=== PATIENT | female | born 1950 | race Caucasian/White ===

== ENCOUNTER → 2017-11-08 | Outpatient (CLI) | payer MEDICARE, OTHER ==
[~2017-11-08] MED LIST: ADAL40PEN; ALBU90OI INH; ALEN70 PO; ASPI325; ASPI325EC; ASPI81CH PO; ATEN25 PO; ATOR40TA; Ativan1 MG PO; BUPR150ER PO; CALCA500CH PO; CILO50; CITA20 PO; CLON.1 PO; CLOP75 PO; CONEST.625; Crestor20 MG PO; DOCU100 PO; DULO60; Desyrel150 MG PO; ESOM20 PO; FERR325 PO; FLONASE ALLERG9.9 ML; FLUT.05NI; FOLI1 PO; FURO40 PO; GABA100 PO; GLIM2 PO; HUMALOG MI SQ; HYDCHL25; INSULANPEN; INSULANPEN SC; LISI20 PO; LISI5; METF500C; METHOTREXATE PO; METTREX2.5 PO; NEFA100; Nexium40 MG PO; Novolin R100 UNIT/M; OMEP20ER; PRAZ1 PO; PRED5 PO; PROLIA60 MG/1 ML SQ; Percocet 5-3251 EACH PO; ROSU10TA PO; TOPI25C; Toprol Xl50 MG PO; VALS80; Zestril40 MG
[2017-11-15 21:07] LABS: CREATININE, URINE 51.9 mg/dL (Not Estab.)
[2017-11-16 13:45] LABS: METANEPHRINE, UR 29 ug/L (Undefined); NORMETANEPHRINE, UR 106 ug/L (Undefined)
== END ==
LOC: OLS 07:00 → LAB SHORT 07:00 → LAB FUT 11-01 17:40
PROVIDERS: Internal Medicine Nephrology
DX: N18.3 Chronic kidney disease, stage 3 (moderate) (principal); D63.1 Anemia in chronic kidney disease
CPT/HCPCS: 81050; 82570; 83835; 84585

== ENCOUNTER → 2018-09-06 | Outpatient (CLI) | payer MEDICARE, OTHER ==
[2018-09-06 17:07] LABS: Influenza A Negative (NEGATIVE); Influenza B Negative (NEGATIVE)
== END | disposition home or self-care (01) ==
LOC: LAB 15:53 → LAB SHORT 15:53
PROVIDERS: Nurse Practitioner Family
DX: R05 Cough (principal); R53.83 Other fatigue
CPT/HCPCS: 87804

== ENCOUNTER → 2019-06-24 | Outpatient (CLI) | payer MEDICARE, OTHER ==
[2019-06-24 14:48] LABS: BASOPHILS ABSOLUTE AUTO 0.02 K/mm3 (0.00-0.23); BASOPHILS PERCENT AUTO 0 % (0-2); EOSINOPHILS ABSOLUTE AUTO 0.05 K/mm3 (0.00-0.68); EOSINOPHILS PERCENT AUTO 1 % (0-6); Hematocrit 34.2 % (33.0-51.0); Hemoglobin 11.2 g/dL (11.5-16.0); IMMATURE GRAN ABSOLUTE AUTO 0.04 K/mm3 (0.00-0.10); IMMATURE GRAN PERCENT AUTO 1 % (0-1); LYMPHOCYTES ABSOLUTE AUTO 0.98 K/mm3 (0.84-5.20); LYMPHOCYTES PERCENT AUTO 13 % (21-46); MONOCYTES ABSOLUTE AUTO 0.49 K/mm3 (0.16-1.47); MONOCYTES PERCENT AUTO 7 % (4-13); Mean Corpuscular HGB 30.2 pg (26.0-34.0); Mean Corpuscular HGB Conc 32.7 g/dL (31.5-36.5); Mean Corpuscular Volume 92 fL (80-100); Mean Platelet Volume 10.8 fL (9.1-12.4); NEUTROPHILS ABSOLUTE AUTO 5.92 K/mm3 (1.96-9.15); NEUTROPHILS PERCENT AUTO 79 % (41-73); Platelet Count 218 K/mm3 (150-400); RDW Coefficient Variation 13.9 % (11.7-14.2); Red Blood Cell Count 3.71 M/mm3 (3.80-5.20)
[2019-06-24 15:00] LABS: Albumin, Blood 2.8 g/dL (3.4-5.0); Albumin/Globulin Ratio 0.7 (0.8-1.8); Bilirubin, Total 0.4 mg/dL (0.1-1.0); Bun/Creatinine Ratio 8.9 (12.0-20.0); Calcium, Blood 8.5 mg/dL (8.5-10.1); Creatinine, Blood 1.57 mg/dL (0.40-1.00); Globulin, Blood 4.3 g/dL (2.2-4.0); Potassium, Blood 3.6 mmol/L (3.5-5.5); Total Protein, Blood 7.1 g/dL (6.4-8.2); Uric Acid, Blood 6.7 mg/dL (2.6-6.0)
[2019-06-25 07:33] LABS: BASOPHILS ABSOLUTE AUTO 0.02 K/mm3 (0.00-0.23); BASOPHILS PERCENT AUTO 0 % (0-2); EOSINOPHILS ABSOLUTE AUTO 0.04 K/mm3 (0.00-0.68); EOSINOPHILS PERCENT AUTO 1 % (0-6); Hematocrit 35.1 % (33.0-51.0); Hemoglobin 11.1 g/dL (11.5-16.0); IMMATURE GRAN ABSOLUTE AUTO 0.04 K/mm3 (0.00-0.10); IMMATURE GRAN PERCENT AUTO 1 % (0-1); LYMPHOCYTES ABSOLUTE AUTO 1.03 K/mm3 (0.84-5.20); LYMPHOCYTES PERCENT AUTO 13 % (21-46); MONOCYTES ABSOLUTE AUTO 0.51 K/mm3 (0.16-1.47); MONOCYTES PERCENT AUTO 7 % (4-13); Mean Corpuscular HGB 29.9 pg (26.0-34.0); Mean Corpuscular HGB Conc 31.6 g/dL (31.5-36.5); Mean Corpuscular Volume 95 fL (80-100); Mean Platelet Volume 11.9 fL (9.1-12.4); NEUTROPHILS ABSOLUTE AUTO 6.04 K/mm3 (1.96-9.15); NEUTROPHILS PERCENT AUTO 79 % (41-73); Platelet Count 220 K/mm3 (150-400); RDW Coefficient Variation 14.1 % (11.7-14.2); RDW Standard Deviation 48.9 fL (35.1-46.3); Red Blood Cell Count 3.71 M/mm3 (3.80-5.20); White Blood Cell Count 7.68 K/mm3 (4.00-11.30)
[2019-06-25 09:27] LABS: Alanine Aminotransfer (ALT/SGP 29 U/L (12-78); Albumin, Blood 2.8 g/dL (3.4-5.0); Albumin/Globulin Ratio 0.7 (0.8-1.8); Alk Phos 129 U/L (40-126); Anion Gap 10 mmol/L (6-16); Aspartate Aminotrans (AST/SGOT 50 U/L (12-37); Bilirubin, Direct 0.1 mg/dL (0.0-0.3); Bilirubin, Indirect 0.2 mg/dL (0.1-0.7); Bilirubin, Total 0.3 mg/dL (0.1-1.0); Blood Urea Nitrogen 15 mg/dL (8-24); Bun/Creatinine Ratio 9.4 (12.0-20.0); CHOL/HDL RATIO 2.9; CO2, Blood 27 mmol/L (21-32); Calcium, Blood 8.6 mg/dL (8.5-10.1); Chloride, Blood 95 mmol/L (98-108); Cholesterol 107 mg/dL (50-200); Creatinine, Blood 1.59 mg/dL (0.40-1.00); Globulin, Blood 4.3 g/dL (2.2-4.0); Glomerular Filtration Rate 32 (60-); Glucose, Blood 385 mg/dL (70-99); HDL Cholesterol 37 mg/dL (>39); LDL/HDL RATIO 0.5; Low Density Lipoprotein Chol 18 mg/dL (<110); Phosphorus, Blood 3.2 mg/dL (2.5-4.9); Potassium, Blood 4.2 mmol/L (3.5-5.5); Sodium, Blood 132 mmol/L (136-145); Total Protein, Blood 7.1 g/dL (6.4-8.2); Triglycerides 262 mg/dL (30-160); Very Low Density Lipoprot Chol 52 mg/dL (6-32)
== END | disposition home or self-care (01) ==
LOC: LAB SHORT 14:44 → LAB EV 14:44
PROVIDERS: Internal Medicine Nephrology; Physician Assistant
DX: M10.9 Gout, unspecified (principal); N18.3 Chronic kidney disease, stage 3 (moderate); D75.1 Secondary polycythemia; E78.00 Pure hypercholesterolemia, unspecified; N25.81 Secondary hyperparathyroidism of renal origin; E55.9 Vitamin D deficiency, unspecified; R76.9 Abnormal immunological finding in serum, unspecified; R94.6 Abnormal results of thyroid function studies; R94.5 Abnormal results of liver function studies
CPT/HCPCS: 36415; 80053; 80061; 82248; 84100; 84550; 85025

== ENCOUNTER 2020-08-15 22:19 | Emergency (ER) | payer MEDICARE, OTHER ==
[~2020-08-15] VITALS: Ht 154.9 cm; Wt 97.1 kg
[2020-08-15 22:56] LABS: BASOPHILS ABSOLUTE AUTO 0.03 K/mm3 (0.00-0.23); BASOPHILS PERCENT AUTO 0 % (0-2); EOSINOPHILS ABSOLUTE AUTO 0.18 K/mm3 (0.00-0.68); EOSINOPHILS PERCENT AUTO 2 % (0-6); Hematocrit 34.4 % (33.0-51.0); Hemoglobin 11.2 g/dL (11.5-16.0); IMMATURE GRAN PERCENT AUTO 1 % (0-1); LYMPHOCYTES ABSOLUTE AUTO 2.47 K/mm3 (0.84-5.20); LYMPHOCYTES PERCENT AUTO 31 % (21-46); MONOCYTES ABSOLUTE AUTO 0.41 K/mm3 (0.16-1.47); MONOCYTES PERCENT AUTO 5 % (4-13); Mean Corpuscular HGB 30.4 pg (26.0-34.0); Mean Corpuscular HGB Conc 32.6 g/dL (31.5-36.5); Mean Corpuscular Volume 93 fL (80-100); NEUTROPHILS ABSOLUTE AUTO 4.84 K/mm3 (1.96-9.15); NEUTROPHILS PERCENT AUTO 60 % (41-73); Platelet Count 217 K/mm3 (150-400); RDW Coefficient Variation 14.1 % (11.7-14.2); RDW Standard Deviation 47.1 fL (35.1-46.3); Red Blood Cell Count 3.69 M/mm3 (3.80-5.20); White Blood Cell Count 8.03 K/mm3 (4.00-11.30)
[2020-08-15 23:17] LABS: Albumin, Blood 3.2 g/dL (3.4-5.0); Albumin/Globulin Ratio 0.8 (0.8-1.8); Bilirubin, Total 0.5 mg/dL (0.1-1.0); Bun/Creatinine Ratio 9.2 (12.0-20.0); Calcium, Blood 9.3 mg/dL (8.5-10.1); Creatinine, Blood 1.2 mg/dL (0.40-1.00); Globulin, Blood 3.8 g/dL (2.2-4.0)
[2020-08-16] MEDS ORDERED: GABA100 PO (00:51)
[2020-08-16] MEDS ORDERED: DESV50 PO (00:52)
[2020-08-16] MEDS ORDERED: ALLO100 PO (00:52)
[2020-08-16] MEDS ORDERED: FOLI1 PO (00:53)
[2020-08-16] MEDS ORDERED: CLON.5 PO (00:56)
[2020-08-16] MEDS ORDERED: METF500C PO (00:56)
== END 2020-08-16 01:56 | disposition home or self-care (01) ==
LOC: ER 22:19
PROVIDERS: Emergency Medicine
DX: T38.3X1A Poisoning by insulin and oral hypoglycemic [antidiabetic] drugs, accidental (unintentional), initial encounter (principal); E11.9 Type 2 diabetes mellitus without complications; E78.5 Hyperlipidemia, unspecified; I10 Essential (primary) hypertension; Z88.0 Allergy status to penicillin; Z79.899 Other long term (current) drug therapy; Z79.4 Long term (current) use of insulin; Z79.02 Long term (current) use of antithrombotics/antiplatelets; Z87.891 Personal history of nicotine dependence; Z95.5 Presence of coronary angioplasty implant and graft
CPT/HCPCS: 36415; 80053; 82947; 85025; 99283

== ENCOUNTER 2021-10-25 23:16 | Inpatient (IN) | payer MEDICARE, OTHER ==
[~2021-10-25] VITALS: Ht 154.9 cm; Wt 100.1 kg
[~2021-10-25 23:16] MED LIST changes: +ALLO100 PO; +CLON.5 PO; +DESV50 PO; +FLONASE ALLERG9.9 M2; -FLONASE ALLERG9.9 ML; -HUMALOG MI SQ; +HUMALOG MI100 UNIT/3 SC; +HUMIRA PEN40 MG/0.2 INJ; -INSULANPEN; +METF500C PO; +PROLIA60 MG/1 ML; -PROLIA60 MG/1 ML SQ; +Prinivil10 MG PO
[2021-10-26 00:07] LABS: BASOPHILS ABSOLUTE AUTO 0.04 K/mm3 (0.00-0.23); BASOPHILS PERCENT AUTO 0 % (0-2); EOSINOPHILS ABSOLUTE AUTO 0.01 K/mm3 (0.00-0.68); EOSINOPHILS PERCENT AUTO 0 % (0-6); Hematocrit 38.7 % (33.0-51.0); Hemoglobin 12.7 g/dL (11.5-16.0); IMMATURE GRAN ABSOLUTE AUTO 0.19 K/mm3 (0.00-0.10); IMMATURE GRAN PERCENT AUTO 2 % (0-1); LYMPHOCYTES PERCENT AUTO 5 % (21-46); MONOCYTES PERCENT AUTO 3 % (4-13); Mean Corpuscular HGB 30.4 pg (26.0-34.0); Mean Corpuscular HGB Conc 32.8 g/dL (31.5-36.5); Mean Corpuscular Volume 93 fL (80-100); Mean Platelet Volume 11.1 fL (9.1-12.4); NEUTROPHILS ABSOLUTE AUTO 11.65 K/mm3 (1.96-9.15); NEUTROPHILS PERCENT AUTO 90 % (41-73); Platelet Count 166 K/mm3 (150-400); RDW Coefficient Variation 14.3 % (11.7-14.2); RDW Standard Deviation 47.9 fL (35.1-46.3); Red Blood Cell Count 4.18 M/mm3 (3.80-5.20); White Blood Cell Count 12.89 K/mm3 (4.00-11.30)
[2021-10-26 00:18] LABS: Albumin, Blood 3.3 g/dL (3.4-5.0); Albumin/Globulin Ratio 0.9 (0.8-1.8); Bilirubin, Total 0.6 mg/dL (0.1-1.0); Bun/Creatinine Ratio 13.2 (12.0-20.0); Calcium, Blood 8.8 mg/dL (8.5-10.1); Creatinine, Blood 1.29 mg/dL (0.40-1.00); Globulin, Blood 3.8 g/dL (2.2-4.0); Potassium, Blood 3.9 mmol/L (3.5-5.5); Total Protein, Blood 7.1 g/dL (6.4-8.2)
[2021-10-26 01:35] LABS: Influenza A Negative (NEGATIVE); Influenza B Negative (NEGATIVE)
[2021-10-26 02:02] LABS: SARS-Cov-2 (COVID-19) PCR, MMC NEGATIVE (NEGATIVE)
[2021-10-26 03:20] LABS: BASOPHILS ABSOLUTE AUTO 0.05 K/mm3 (0.00-0.23); BASOPHILS PERCENT AUTO 0 % (0-2); EOSINOPHILS PERCENT AUTO 1 % (0-6); Hematocrit 33.3 % (33.0-51.0); Hemoglobin 10.7 g/dL (11.5-16.0); IMMATURE GRAN ABSOLUTE AUTO 0.29 K/mm3 (0.00-0.10); IMMATURE GRAN PERCENT AUTO 2 % (0-1); LYMPHOCYTES ABSOLUTE AUTO 1.18 K/mm3 (0.84-5.20); LYMPHOCYTES PERCENT AUTO 7 % (21-46); MONOCYTES PERCENT AUTO 7 % (4-13); Mean Corpuscular HGB 30.2 pg (26.0-34.0); Mean Corpuscular HGB Conc 32.1 g/dL (31.5-36.5); Mean Corpuscular Volume 94 fL (80-100); NEUTROPHILS ABSOLUTE AUTO 14.16 K/mm3 (1.96-9.15); NEUTROPHILS PERCENT AUTO 83 % (41-73); Platelet Count 155 K/mm3 (150-400); RDW Coefficient Variation 14.3 % (11.7-14.2); RDW Standard Deviation 48.2 fL (35.1-46.3); Red Blood Cell Count 3.54 M/mm3 (3.80-5.20); White Blood Cell Count 16.98 K/mm3 (4.00-11.30)
[2021-10-26 04:37] LABS: Source, Urine Straight Cath
[2021-10-26 04:39] LABS: Bilirubin, Urine Neg (Neg); Blood, Urine Neg (Neg); Glucose Qualitative, Urine 1+ (Neg); Ketones, Urine Neg (Neg); Leukocyte Esterase, Urine Neg (Neg); Nitrite, Urine Neg (Neg); Protein, Urine 2+ (Neg); Urobilinogen, Urine NORM (Normal)
[2021-10-26 05:07] LABS: Appearance, Urine Clear (Clear); Color, Urine Yellow (P-Yellow)
[2021-10-26 05:09] LABS: Bacteria Rare /hpf; Red Blood Cells, Urine 0-2 /hpf (0-2); Squamous Epithelial Cells Few /hpf (Few); White Blood Cells, Urine 0-2 /hpf (0-5)
[2021-10-26 08:00] LABS: Albumin, Blood 2.9 g/dL (3.4-5.0); Albumin/Globulin Ratio 0.8 (0.8-1.8); Bilirubin, Total 0.8 mg/dL (0.1-1.0); Bun/Creatinine Ratio 12.1 (12.0-20.0); Calcium, Blood 8.3 mg/dL (8.5-10.1); Creatinine, Blood 1.41 mg/dL (0.40-1.00); Globulin, Blood 3.6 g/dL (2.2-4.0); Potassium, Blood 3.8 mmol/L (3.5-5.5); Total Protein, Blood 6.5 g/dL (6.4-8.2)
--- NOTE | 2021-10-26 16:46 | NUR ---
Spiritual Care visit. Pt. is awake and sitting up. Spouse and Pts. sister are present. Pt. verbalized that she was interested in spiritual care, but it was inconvenient in the moment. Pt. verbalized agreement, when I said I would return at a better time.
[2021-10-26] MEDS ORDERED: Aspir 8181 MG PO (17:01)
[2021-10-26] MEDS ORDERED: Vitamin D1000 UNI1 PO (17:02)
[2021-10-26] MEDS ORDERED: CALCIUM 500 MG1 EAC9 PO (17:03)
[2021-10-26] MEDS ORDERED: FERSU300 PO (17:04)
[2021-10-26] MEDS ORDERED: ASCO500 PO ×2 (17:05→17:06)
[2021-10-26] MEDS ORDERED: OTEZLA30 MG PO (17:14)
[2021-10-26] MEDS ORDERED: DESV50 PO (17:19)
[2021-10-26] MEDS ORDERED: CYAN500 PO (17:30)
[2021-10-26] MEDS ORDERED: SUPER B COMPLEX PO (17:31)
--- NOTE | 2021-10-26 18:42 | NUR ---
Spiritual Care Request. Pt. had requested spiritual care. Re-esatblished rapport from our random visit earlier in the afternoon. Pt. is pleasant but unsettled about her IV being impacted by her sleep posture. Pt. speaks of yaima in broad terms. Explore issues of yaima and belief. Pt. displays evidence of understanding. Nursing staff arrives to try to re-estabish a new IV. Pt. verbalized gratitude for the spiritual care visit.
--- NOTE | 2021-10-26 18:54 | NUR ---
Admit Note Received report from PEPE Whittaker in ED. Pt to room at approx 1525. Pt sba transfered to bed from [facility]. Pt oriented to room and call light. Pt educated on fall risk and using call light for assistance. Pt reports not feeling well but does note recall coming into ED. Pt alert, oriented X4; calm and cooperative with care. Anxious at times. Spo2 >90% on room air, Ls t/o r>l, resp rate 20-26, sob with exertion; productive cough thick yellow sputum per pt report, spouse states she had one episode of "blood sputum in the ED". Pt reports pain to right rib/low chest, medicated per orders. Pt denies nausea, dizziness, numb/tingling at this time. Tele sinus tach 100's, bp stable. Bt hypoactive t/o, pt reports continues to pass gas, abd soft, nontender. 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 Other vss. No other acute changes noted. Will continue to monitor unitl report given to oncoming rn.
[2021-10-27 05:49] LABS: Hemoglobin 10.9 g/dL (11.5-16.0); Mean Corpuscular HGB 29.9 pg (26.0-34.0); Mean Corpuscular HGB Conc 32.1 g/dL (31.5-36.5); Mean Corpuscular Volume 93 fL (80-100); Mean Platelet Volume 10.7 fL (9.1-12.4); Platelet Count 159 K/mm3 (150-400); RDW Coefficient Variation 14.9 % (11.7-14.2); RDW Standard Deviation 51.1 fL (35.1-46.3); Red Blood Cell Count 3.64 M/mm3 (3.80-5.20); White Blood Cell Count 18.21 K/mm3 (4.00-11.30)
[2021-10-27 06:15] LABS: Albumin, Blood 2.7 g/dL (3.4-5.0); Anion Gap 5 mmol/L (6-16); Blood Urea Nitrogen 20 mg/dL (8-24); Bun/Creatinine Ratio 15.7 (12.0-20.0); CO2, Blood 24 mmol/L (21-32); Calcium, Blood 7.9 mg/dL (8.5-10.1); Chloride, Blood 110 mmol/L (98-108); Creatinine, Blood 1.27 mg/dL (0.40-1.00); Glomerular Filtration Rate 42 (60-); Glucose, Blood 211 mg/dL (70-99); Phosphorus, Blood 1.9 mg/dL (2.5-4.9); Potassium, Blood 3.7 mmol/L (3.5-5.5); Sodium, Blood 139 mmol/L (136-145)
--- NOTE | 2021-10-27 15:30 | NUR ---
SHIFT SUMMARY PT AWAKE DURING SHIFT REPORT, REQUESTING ASSIST TO BSC TO VOID. IVF'S INFUSING PER EMAR. PT WAS SBA TO BSC WHILE IVF'S INFUSING, PT NOW INDEPENDENT TO BTHRM. PT'S TO RM THIS AM AND THRU OUT THE DAY. SR PER TELE MX. PT EATING AND DRINKING WELL NOW. NO C/O PAIN. DR HENDERSON HERE THIS AM TO SEE PT; NO NEW ORDERS, CONTINUE PLAN OF CARE. PT DENIED FURTHER NEEDS. ABLE TO MAKE NEEDS KNOWN. CALL LT IN REACH.
[2021-10-28 04:48] LABS: Hematocrit 34.9 % (33.0-51.0); Hemoglobin 10.8 g/dL (11.5-16.0); Mean Corpuscular HGB 30.1 pg (26.0-34.0); Mean Corpuscular HGB Conc 30.9 g/dL (31.5-36.5); Mean Corpuscular Volume 97 fL (80-100); Mean Platelet Volume 10.7 fL (9.1-12.4); Platelet Count 143 K/mm3 (150-400); RDW Standard Deviation 53.4 fL (35.1-46.3); Red Blood Cell Count 3.59 M/mm3 (3.80-5.20); White Blood Cell Count 12.56 K/mm3 (4.00-11.30)
[2021-10-28 05:08] LABS: Albumin, Blood 2.6 g/dL (3.4-5.0); Anion Gap 7 mmol/L (6-16); Blood Urea Nitrogen 14 mg/dL (8-24); Bun/Creatinine Ratio 11.2 (12.0-20.0); CO2, Blood 25 mmol/L (21-32); Calcium, Blood 7.9 mg/dL (8.5-10.1); Chloride, Blood 106 mmol/L (98-108); Creatinine, Blood 1.25 mg/dL (0.40-1.00); Glomerular Filtration Rate 46 (60-); Glucose, Blood 194 mg/dL (70-99); Phosphorus, Blood 2.4 mg/dL (2.5-4.9); Potassium, Blood 4.1 mmol/L (3.5-5.5); Sodium, Blood 138 mmol/L (136-145)
--- NOTE | 2021-10-28 05:48 | NUR ---
SHIFT SUMMARY: PATIENT REPORTED NAUSEA AND R SIDE/BACK PAIN AT START OF SHIFT. TRAMADOL AND ZOFRAN WERE GIVEN WITH GOOD EFFECT. PATIENT HAS NO S/S OF RESPIRATORY DISTRESS. MAINTAINS SATS 98-100% ON RA.
[2021-10-28] MEDS ORDERED: GUAI600T33 PO (14:12)
[2021-10-28] MEDS ORDERED: MIRALAX17 GM PO (14:12)
[2021-10-28] MEDS ORDERED: VISBIOME 112.51 EACH PO (14:13)
[2021-10-28] MEDS ORDERED: AMOCLA875 PO (14:14)
[2021-10-28] MEDS ORDERED: AZIT500 PO (14:15)
--- NOTE | 2021-10-28 17:00 | NUR ---
DISCHARGE SUMMARY PT IV AND TELE REMOVED PRIOR TO DISCHARGE. MEDS FAXED IN TO PHARMACY. PAPERWORK REVIEWED WITH AND SIGNED BY PT. PT TAKEN DOWN VIA WHEELCHAIR TO [facility], ALONG WITH PERSONAL BELONGINGS WHERE SHE WAS MET WITH HER RIDE.
== END 2021-10-28 15:51 | disposition home or self-care (01) | DRG 871 ==
LOC: ER 23:16 → ERHOLD 10-26 04:14 → MEDS 10-26 15:19
PROVIDERS: Emergency Medicine; Family Medicine; Internal Medicine; ADMIT Family Medicine
DX: A41.9 Sepsis, unspecified organism (principal); J18.9 Pneumonia, unspecified organism; G92.8 Other toxic encephalopathy; D84.821 Immunodeficiency due to drugs; Z20.822 Contact with and (suspected) exposure to COVID-19; R65.20 Severe sepsis without septic shock; N18.30 Chronic kidney disease, stage 3 unspecified; E11.22 Type 2 diabetes mellitus with diabetic chronic kidney disease; E11.65 Type 2 diabetes mellitus with hyperglycemia; I12.9 Hypertensive chronic kidney disease with stage 1 through stage 4 chronic kidney disease, or unspecified chronic kidney disease; E11.51 Type 2 diabetes mellitus with diabetic peripheral angiopathy without gangrene; I25.10 Atherosclerotic heart disease of native coronary artery without angina pectoris; L40.50 Arthropathic psoriasis, unspecified; M79.7 Fibromyalgia; F42.9 Obsessive-compulsive disorder, unspecified; E78.5 Hyperlipidemia, unspecified; I25.2 Old myocardial infarction; Z79.02 Long term (current) use of antithrombotics/antiplatelets; Z79.84 Long term (current) use of oral hypoglycemic drugs; Z79.899 Other long term (current) drug therapy; Z95.5 Presence of coronary angioplasty implant and graft; Z90.710 Acquired absence of both cervix and uterus; Z87.891 Personal history of nicotine dependence; Z88.0 Allergy status to penicillin
CPT/HCPCS: 36415; 71045; 80053; 80069; 81001; 82947; 83605; 83880; 84145; 85025; 85027; 87040; 87804; 94640; 94664; 94760; 96372; 96374; 96375; 97161; 97530; 99285-25; A9270; J0456; J1650; J1815; J2405; J2543; J7030; J7060; J7120; U0004

== ENCOUNTER 2021-11-01 23:38 | Emergency (ER) | payer MEDICARE, OTHER ==
[~2021-11-01] VITALS: Ht 154.9 cm; Wt 97.1 kg
[~2021-11-01 23:38] MED LIST changes: +AMOCLA875 PO; +ASCO500 PO; +AZIT500 PO; +Aspir 8181 MG PO; +CALCIUM 500 MG1 EAC9 PO; +CYAN500 PO; +FERSU300 PO; +GUAI600T33 PO; +MIRALAX17 GM PO; +OTEZLA30 MG PO; +SUPER B COMPLEX PO; +VISBIOME 112.51 EACH PO; +Vitamin D1000 UNI1 PO
[2021-11-02 00:46] LABS: Hematocrit 41.8 % (33.0-51.0); Mean Corpuscular HGB 29.6 pg (26.0-34.0); Mean Corpuscular HGB Conc 31.1 g/dL (31.5-36.5); Mean Corpuscular Volume 95 fL (80-100); Mean Platelet Volume 10.5 fL (9.1-12.4); NRBC ABSOLUTE 0.03 K/mm3 (0.00-0.02); NRBC Auto 0.3 /100 WBC (0.0-0.2); Platelet Count 295 K/mm3 (150-400); RDW Coefficient Variation 14.4 % (11.7-14.2); RDW Standard Deviation 50.1 fL (35.1-46.3); Red Blood Cell Count 4.39 M/mm3 (3.80-5.20); White Blood Cell Count 10.11 K/mm3 (4.00-11.30)
[2021-11-02 00:58] LABS: Albumin/Globulin Ratio 0.7 (0.8-1.8); Bilirubin, Total 0.4 mg/dL (0.1-1.0); Bun/Creatinine Ratio 16.5 (12.0-20.0); Calcium, Blood 9.4 mg/dL (8.5-10.1); Creatinine, Blood 1.15 mg/dL (0.40-1.00); Globulin, Blood 4.6 g/dL (2.2-4.0); Potassium, Blood 3.9 mmol/L (3.5-5.5); Total Protein, Blood 7.6 g/dL (6.4-8.2)
[2021-11-02 01:15] LABS: BAND PERCENT MAN 4 % (0-8); BASOPHILS PERCENT MAN 3 % (0-2); EOSINOPHILS PERCENT MAN 1 % (0-6); LYMPHOCYTES ABSOLUTE MAN 3.03 K/mm3 (0.84-5.20); LYMPHOCYTES PERCENT MAN 30 % (21-46); METAMYELOCYTE PERCENT MAN 3 % (0-0); MONOCYTES PERCENT MAN 4 % (4-13); MYELOCYTE PERCENT MAN 1 % (0-0); NEUTROPHILS ABSOLUTE MAN 5.86 K/mm3 (1.96-9.15); SEG NEUTROPHILS PERCENT MAN 54 % (41-73); TOTAL CELLS COUNTED 100
== END 2021-11-02 04:47 | disposition home or self-care (01) ==
LOC: ER 23:38
PROVIDERS: Student in an Organized Health Care Education/Training Program
DX: J18.9 Pneumonia, unspecified organism (principal); E78.5 Hyperlipidemia, unspecified; I12.9 Hypertensive chronic kidney disease with stage 1 through stage 4 chronic kidney disease, or unspecified chronic kidney disease; E11.22 Type 2 diabetes mellitus with diabetic chronic kidney disease; N18.9 Chronic kidney disease, unspecified; I25.2 Old myocardial infarction; I25.10 Atherosclerotic heart disease of native coronary artery without angina pectoris; Z79.4 Long term (current) use of insulin; Z95.5 Presence of coronary angioplasty implant and graft; Z87.891 Personal history of nicotine dependence; Z79.899 Other long term (current) drug therapy; Z88.0 Allergy status to penicillin
CPT/HCPCS: 36415; 71046; 71250; 80053; 84484; 85025; 93005; 93010; 99284-25

== ENCOUNTER 2022-02-22 17:32 | Inpatient (IN) | payer MEDICARE, OTHER ==
[~2022-02-22] VITALS: Ht 154.9 cm; Wt 102.1 kg
[~2022-02-22 17:32] MED LIST changes: +GABA300 PO; +INSULANI SC
[2022-02-22 18:16] LABS: BASOPHILS ABSOLUTE AUTO 0.03 K/mm3 (0.00-0.23); BASOPHILS PERCENT AUTO 0 % (0-2); EOSINOPHILS ABSOLUTE AUTO 0.12 K/mm3 (0.00-0.68); EOSINOPHILS PERCENT AUTO 1 % (0-6); Hematocrit 40.4 % (33.0-51.0); Hemoglobin 13.3 g/dL (11.5-16.0); IMMATURE GRAN ABSOLUTE AUTO 0.07 K/mm3 (0.00-0.10); IMMATURE GRAN PERCENT AUTO 1 % (0-1); LYMPHOCYTES ABSOLUTE AUTO 2.33 K/mm3 (0.84-5.20); LYMPHOCYTES PERCENT AUTO 23 % (21-46); MONOCYTES PERCENT AUTO 6 % (4-13); Mean Corpuscular HGB 29.9 pg (26.0-34.0); Mean Corpuscular HGB Conc 32.9 g/dL (31.5-36.5); Mean Corpuscular Volume 91 fL (80-100); Mean Platelet Volume 11.2 fL (9.1-12.4); NEUTROPHILS ABSOLUTE AUTO 7.07 K/mm3 (1.96-9.15); NEUTROPHILS PERCENT AUTO 69 % (41-73); Platelet Count 246 K/mm3 (150-400); RDW Coefficient Variation 14.1 % (11.7-14.2); RDW Standard Deviation 46.9 fL (35.1-46.3); Red Blood Cell Count 4.45 M/mm3 (3.80-5.20); White Blood Cell Count 10.22 K/mm3 (4.00-11.30)
[2022-02-22 18:34] LABS: Albumin, Blood 3.7 g/dL (3.4-5.0); Albumin/Globulin Ratio 1.1 (0.8-1.8); Bilirubin, Total 0.5 mg/dL (0.1-1.0); Bun/Creatinine Ratio 7.5 (12.0-20.0); Calcium, Blood 9.3 mg/dL (8.5-10.1); Creatinine, Blood 3.86 mg/dL (0.40-1.00); Globulin, Blood 3.5 g/dL (2.2-4.0); Potassium, Blood 3.7 mmol/L (3.5-5.5); Total Protein, Blood 7.2 g/dL (6.4-8.2)
[2022-02-22 19:15] LABS: Influenza A, PCR NEGATIVE (NEGATIVE); Influenza B, PCR NEGATIVE (NEGATIVE); Resp Syncytial Virus, PCR NEGATIVE (NEGATIVE); SARS-Cov-2 (COVID-19) PCR, MMC NEGATIVE (NEGATIVE)
[2022-02-22] MEDS ORDERED: MONT10T PO (22:16)
[2022-02-22] MEDS ORDERED: CYCLOBENZAPRINE5 MG PO (22:17)
[2022-02-22] MEDS ORDERED: ESOMEPRAZOLE MA40 MG PO (22:18)
[2022-02-22] MEDS ORDERED: PRAZOSIN HCL1 M2 PO (22:19)
[2022-02-22] MEDS ORDERED: LISI20 PO (22:19)
[2022-02-22] MEDS ORDERED: HUMIRA(CF)40 MG/0.4 SC (22:23)
[2022-02-22] MEDS ORDERED: OZEMPIC1 MG/0.72 SC (22:24)
[2022-02-22] MEDS ORDERED: DESVENLAFAXINE50 M3 PO (22:28)
[2022-02-22] MEDS ORDERED: PLAVIX75 MG PO (22:29)
--- NOTE | 2022-02-22 22:41 | NUR ---
ADMIT NOTE 71 YR OLD FEMALE ADMITTED TO FLOOR FROM THE ED WITH DX OF [place]. HX OF DM, [place], IBS AND CKD. ALERT AND ORIENTED. ED RN REPORTED PT HAVING VERTIGO, FEVER AND SOB. ARRIVES ON FLOOR WITH NS INFUSING. CALL LIGHT IN REACH. BED ALARM ON FOR SAFETY
--- NOTE | 2022-02-22 23:34 | NUR ---
PHOSPHORIC ACID SUPERVISOR SUMMARY ADMITTED WITH VERTIGO AND LOW BP (SEE DOC FLOW SHEETS). IV BOLUS OF NS ADMINISTERED, EFFECTIVE. BP NOW 127/62. ALERT AND ORIENTED. ORIENTED TO USE OF CALL LIGHT. CALL LIGHT IN REACH. DENIES CHEST PAIN. DENIES VERTIGO WHILE IN BED. AGREES TO USE CALL LIGHT IF NEEDS TO GET OUT OF BED AND BED ALARM ON FOR SAFETY REASONS, UNTIL NO MORE VERTIGO. RESTING QUIETLY. WILL CONTINUE TO MONITOR
--- NOTE | 2022-02-23 06:22 | NUR ---
NO VOICED VERTIGO. HAS BEEN RESTING QUIETLY WITH FEW INTERRUPTIONS. CALL LIGHT IN REACH
[2022-02-23 06:38] LABS: BASOPHILS ABSOLUTE AUTO 0.03 K/mm3 (0.00-0.23); BASOPHILS PERCENT AUTO 0 % (0-2); EOSINOPHILS ABSOLUTE AUTO 0.13 K/mm3 (0.00-0.68); EOSINOPHILS PERCENT AUTO 1 % (0-6); Hematocrit 41.1 % (33.0-51.0); Hemoglobin 13.4 g/dL (11.5-16.0); IMMATURE GRAN ABSOLUTE AUTO 0.07 K/mm3 (0.00-0.10); IMMATURE GRAN PERCENT AUTO 1 % (0-1); LYMPHOCYTES ABSOLUTE AUTO 2.95 K/mm3 (0.84-5.20); LYMPHOCYTES PERCENT AUTO 29 % (21-46); MONOCYTES ABSOLUTE AUTO 0.57 K/mm3 (0.16-1.47); MONOCYTES PERCENT AUTO 6 % (4-13); Mean Corpuscular HGB 29.7 pg (26.0-34.0); Mean Corpuscular HGB Conc 32.6 g/dL (31.5-36.5); Mean Corpuscular Volume 91 fL (80-100); Mean Platelet Volume 11.2 fL (9.1-12.4); NEUTROPHILS PERCENT AUTO 63 % (41-73); Platelet Count 194 K/mm3 (150-400); RDW Coefficient Variation 14.1 % (11.7-14.2); RDW Standard Deviation 46.6 fL (35.1-46.3); Red Blood Cell Count 4.51 M/mm3 (3.80-5.20); White Blood Cell Count 10.25 K/mm3 (4.00-11.30)
[2022-02-23 07:10] LABS: Albumin, Blood 3.6 g/dL (3.4-5.0); Anion Gap 11 mmol/L (6-16); Blood Urea Nitrogen 29 mg/dL (8-24); Bun/Creatinine Ratio 8.8 (12.0-20.0); CO2, Blood 25 mmol/L (21-32); Calcium, Blood 8.2 mg/dL (8.5-10.1); Chloride, Blood 98 mmol/L (98-108); Glomerular Filtration Rate 14 (60-); Glucose, Blood 156 mg/dL (70-99); Phosphorus, Blood 3.4 mg/dL (2.5-4.9); Potassium, Blood 2.9 mmol/L (3.5-5.5); Sodium, Blood 134 mmol/L (136-145)
[2022-02-23 14:23] LABS: Albumin, Blood 3.3 g/dL (3.4-5.0); Anion Gap 8 mmol/L (6-16); Blood Urea Nitrogen 27 mg/dL (8-24); Bun/Creatinine Ratio 10.3 (12.0-20.0); CO2, Blood 26 mmol/L (21-32); Calcium, Blood 8.2 mg/dL (8.5-10.1); Chloride, Blood 101 mmol/L (98-108); Creatinine, Blood 2.62 mg/dL (0.40-1.00); Glomerular Filtration Rate 19 (60-); Glucose, Blood 249 mg/dL (70-99); Potassium, Blood 3.8 mmol/L (3.5-5.5); Sodium, Blood 135 mmol/L (136-145)
--- NOTE | 2022-02-23 17:39 | NUR ---
SHIFT SUMMARY: PATIENT A&OX4. PLEASANT AND COOPERATIVE WITH CARE. UP WITH SBA TO BATHROOM. CONTINENT T/O SHIFT. DENIES DIZZINESS, BUT REPORT HEADACHE 09/26. RECIEVED PRN TYLENOL PER EMAR WITH GOOD RESULT PAIN DOWN TO 2. PATIENT HAD RENAL US TODAY WITH POST VOID RESIDUAL OF 29 ML. GFR IS 19 SLIGHTLY IMPROVING. ON TELE SR @ 74. VITALS SIGN REVIEWED. INFUSING NS @ 100 MLS/HR. PATIENT SITTING UP IN CHAIR FOR DINNER. CALL LIGHT IN REACH.
--- NOTE | 2022-02-23 18:04 | NUR ---
CALLED DR. BULLARD REGARDING PATIENT'S BP. AT 1614 BP 178/74 WITH HR OF 86. 1757 BP 188/83 WITH HR OF 86. NO ORDERS RECIEVED AT THIS TIME.PER DR. ALEXIS WILL REVIEWED PATIENT CHART.
--- NOTE | 2022-02-23 23:35 | NUR ---
RECEIVED CALL FROM OIL DELIVERER TO CHANGE BATTERIES IN TELE BOX. BATTERIES CAHNGED.
--- NOTE | 2022-02-24 04:10 | NUR ---
PT'S SBP NOTED TO BE 221 AT 0400 CHECK. PRN CLONIDINE 0.1MG ADMINISTERED AND DR MAC NOTIFIED. PER DR MAC: DC IV FLUIDS, ADMINISTER HYDRALAZINE 10MG IV AND OK FOR TESSALON PERLES 100MG TID PRN COUGH. NOTIFY IF BP DOES NOT COME DOWN.
[2022-02-24 05:24] LABS: BASOPHILS ABSOLUTE AUTO 0.01 K/mm3 (0.00-0.23); BASOPHILS PERCENT AUTO 0 % (0-2); EOSINOPHILS ABSOLUTE AUTO 0.06 K/mm3 (0.00-0.68); EOSINOPHILS PERCENT AUTO 1 % (0-6); Hematocrit 38.8 % (33.0-51.0); Hemoglobin 12.9 g/dL (11.5-16.0); IMMATURE GRAN ABSOLUTE AUTO 0.03 K/mm3 (0.00-0.10); IMMATURE GRAN PERCENT AUTO 1 % (0-1); LYMPHOCYTES ABSOLUTE AUTO 1.93 K/mm3 (0.84-5.20); LYMPHOCYTES PERCENT AUTO 30 % (21-46); MONOCYTES ABSOLUTE AUTO 0.39 K/mm3 (0.16-1.47); MONOCYTES PERCENT AUTO 6 % (4-13); Mean Corpuscular HGB 30.1 pg (26.0-34.0); Mean Corpuscular HGB Conc 33.2 g/dL (31.5-36.5); Mean Corpuscular Volume 91 fL (80-100); NEUTROPHILS ABSOLUTE AUTO 4.03 K/mm3 (1.96-9.15); NEUTROPHILS PERCENT AUTO 63 % (41-73); Platelet Count 172 K/mm3 (150-400); RDW Coefficient Variation 14.1 % (11.7-14.2); RDW Standard Deviation 46.4 fL (35.1-46.3); Red Blood Cell Count 4.28 M/mm3 (3.80-5.20); White Blood Cell Count 6.45 K/mm3 (4.00-11.30)
--- NOTE | 2022-02-24 05:27 | NUR ---
PT WENT TO BATHROOM AND CALLED THIS RN TO SAY SHE COULD FEEL HER HR IN HER EARS. PER CARITO IN TELE, PT TACHY WITH PACs. HELPED AMBULATE BACK TO BED, THEN SHE BECAME NAUSEOUS. VOMITED 200mL YELLOW VOMIT. IV ZOFRAN ADMINISTERED. BP RECHECK 233/100. PT AMBULATED TO TOILET AND AGAIN CALLED STATING SHE COULD FEEL HR IN HEAD; TELE CALLED AND PT HR IN 150s. AMBULATED BACK TO BED TO LAY DOWN WITH FAN ON HER D/T C/O HEAT. NO FURTHER C/O NAUSEA OR VOMITING.
[2022-02-24 05:51] LABS: Albumin, Blood 3.7 g/dL (3.4-5.0); Anion Gap 9 mmol/L (6-16); Blood Urea Nitrogen 18 mg/dL (8-24); Bun/Creatinine Ratio 10.9 (12.0-20.0); CO2, Blood 22 mmol/L (21-32); Calcium, Blood 8.6 mg/dL (8.5-10.1); Chloride, Blood 109 mmol/L (98-108); Creatinine, Blood 1.65 mg/dL (0.40-1.00); Glomerular Filtration Rate 33 (60-); Glucose, Blood 173 mg/dL (70-99); Phosphorus, Blood 1.6 mg/dL (2.5-4.9); Potassium, Blood 3.7 mmol/L (3.5-5.5); Sodium, Blood 140 mmol/L (136-145)
--- NOTE | 2022-02-24 06:14 | NUR ---
A&Ox4. PLEASANT AND COOPERATIVE WITH CARE. BP RUNNING HIGH; SBP >200 @0400 CHECKS. PRN CLONIDINE 0.1MG GIVEN AN DR MAC NOTIFIED. FLUIDS STOPPED, GIVEN IV APRESOLINE 10MG AND TESSALON PERLE C/O COUGH. BP PEAKED AT 233 AND THEN BEGAN COMING DOWN. DR MAC NOTIFIED. AMBULATING WITH SBA TO BATHROOM D/T EPISODIC HTN. AWAKE MOST OF NIGHT. DENIES C/O CP OR DYSPNEA. EPISODE OF NAUSEA/VOMTING DURING HTN EPISODE Tx IV ZOFRAN. PT NOW RESTING IN BED. WILL REPORT TO ONCOMING RN.
--- NOTE | 2022-02-24 17:10 | NUR ---
Shift Summary A/O, independent. HR ranging from 100-150's and acutally sustained 130's. Dr. Florez was notified, lopressor ordered for HR > 120. A dose was given which reduced HR to 80-90's. Continent to bathroom. C/O nausea with some mucous emesis, phenergan ordered and given with good effect. Denies pain. BP also greatly improved with ordered meds compared to yesterday. EKG orderd, completed. Awaiting ECHO.
[2022-02-25 06:03] LABS: Hemoglobin 11.3 g/dL (11.5-16.0)
[2022-02-25 06:15] LABS: Albumin, Blood 3.2 g/dL (3.4-5.0); Anion Gap 6 mmol/L (6-16); Blood Urea Nitrogen 16 mg/dL (8-24); Bun/Creatinine Ratio 10.8 (12.0-20.0); CO2, Blood 27 mmol/L (21-32); Calcium, Blood 8.7 mg/dL (8.5-10.1); Chloride, Blood 105 mmol/L (98-108); Creatinine, Blood 1.48 mg/dL (0.40-1.00); Glomerular Filtration Rate 38 (60-); Glucose, Blood 203 mg/dL (70-99); Phosphorus, Blood 1.6 mg/dL (2.5-4.9); Potassium, Blood 4.1 mmol/L (3.5-5.5); Sodium, Blood 138 mmol/L (136-145)
--- NOTE | 2022-02-25 07:43 | NUR ---
Rn summary: Patient is alert and oriented x4. Pt remains independant in room and to BR. Patient denies any chest discomfort or heart punding in ears. Pt feels much better this shift. Tele shows SR with PAC's rate 80"s. No nausia. Pt has rested well and hopes to be discharged home today. Call light in reach.
[2022-02-25] MEDS ORDERED: BENZ100A PO (11:40)
--- NOTE | 2022-02-25 12:24 | NUR ---
DISCHARGE PT A&OX 4 @ TIME OF DC DIRECTION. IV REMOVED, TELE DC'ED. PT PROVIDED W/ WRITTEN AND VERBAL DIRECTION. PT VERBALIZED UNDERSTANDING. WC ESCORT OUT TO [facility], SISTER PROVIDING TRANSPORT.
== END 2022-02-25 12:15 | disposition home or self-care (01) | DRG 683 ==
LOC: ER 17:32 → MEDS 21:21
PROVIDERS: Internal Medicine; Physician Assistant; ADMIT Family Medicine
DX: N17.9 Acute kidney failure, unspecified (principal); E87.1 Hypo-osmolality and hyponatremia; Z68.41 Body mass index [BMI] 40.0-44.9, adult; Z20.822 Contact with and (suspected) exposure to COVID-19; K58.9 Irritable bowel syndrome, unspecified; E11.22 Type 2 diabetes mellitus with diabetic chronic kidney disease; E11.51 Type 2 diabetes mellitus with diabetic peripheral angiopathy without gangrene; L40.50 Arthropathic psoriasis, unspecified; F42.9 Obsessive-compulsive disorder, unspecified; I12.9 Hypertensive chronic kidney disease with stage 1 through stage 4 chronic kidney disease, or unspecified chronic kidney disease; N18.30 Chronic kidney disease, stage 3 unspecified; E66.01 Morbid (severe) obesity due to excess calories; I25.10 Atherosclerotic heart disease of native coronary artery without angina pectoris; I95.9 Hypotension, unspecified; E87.6 Hypokalemia; E83.39 Other disorders of phosphorus metabolism; E78.5 Hyperlipidemia, unspecified; M79.7 Fibromyalgia; I25.2 Old myocardial infarction; Z95.5 Presence of coronary angioplasty implant and graft; Z95.828 Presence of other vascular implants and grafts; Z90.13 Acquired absence of bilateral breasts and nipples; Z90.710 Acquired absence of both cervix and uterus; Z87.891 Personal history of nicotine dependence; Z88.0 Allergy status to penicillin; Z79.4 Long term (current) use of insulin; Z79.899 Other long term (current) drug therapy
CPT/HCPCS: 0241U; 36415; 51798; 71046; 76770; 80053; 80069; 82947; 83735; 85014; 85018; 85025; 93005; 93010; 93306; 99284-25; A9270; J0360; J1644; J1815; J2405; J2550; J3480; J7030; J7050; J7060

== ENCOUNTER → 2023-07-27 | Outpatient (CLI) | payer MEDICARE, OTHER ==
[~2023-07-27] MED LIST changes: +BENZ100A PO; +CYCLOBENZAPRINE5 MG PO; +DESVENLAFAXINE50 M3 PO; +ESOMEPRAZOLE MA40 MG PO; +HUMIRA(CF)40 MG/0.4 SC; +MONT10T PO; +OZEMPIC1 MG/0.72 SC; +PLAVIX75 MG PO; +PRAZOSIN HCL1 M2 PO
== END ==
LOC: LAB 09:51 → LAB SHORT 09:51
DX: L82.1 Other seborrheic keratosis (principal)
CPT/HCPCS: 88305

== ENCOUNTER 2024-06-26 09:02 | Observation (INO) | payer MEDICARE, OTHER ==
[~2024-06-26] VITALS: Ht 152.4 cm; Wt 105.1 kg
[~2024-06-26 09:02] MED LIST changes: -Crestor20 MG PO; +DESVENLAFAXINE100 M3 PO; -DESVENLAFAXINE50 M3 PO; +METO50ER PO; +ROSUVASTATIN CA20 MG PO; -Toprol Xl50 MG PO
[2024-06-26 09:45] LABS: BASOPHILS ABSOLUTE AUTO 0.02 K/mm3 (0.00-0.23); BASOPHILS PERCENT AUTO 0 % (0-2); EOSINOPHILS PERCENT AUTO 2 % (0-6); Hematocrit 38.6 % (33.0-51.0); Hemoglobin 12.6 g/dL (11.5-16.0); IMMATURE GRAN ABSOLUTE AUTO 0.04 K/mm3 (0.00-0.10); IMMATURE GRAN PERCENT AUTO 1 % (0-1); LYMPHOCYTES ABSOLUTE AUTO 1.63 K/mm3 (0.84-5.20); LYMPHOCYTES PERCENT AUTO 25 % (21-46); MONOCYTES ABSOLUTE AUTO 0.15 K/mm3 (0.16-1.47); MONOCYTES PERCENT AUTO 2 % (4-13); Mean Corpuscular HGB 29.6 pg (26.0-34.0); Mean Corpuscular HGB Conc 32.6 g/dL (31.5-36.5); Mean Corpuscular Volume 91 fL (80-100); Mean Platelet Volume 10.8 fL (9.1-12.4); NEUTROPHILS ABSOLUTE AUTO 4.62 K/mm3 (1.96-9.15); NEUTROPHILS PERCENT AUTO 71 % (41-73); Platelet Count 171 K/mm3 (150-400); RDW Coefficient Variation 13.5 % (11.7-14.2); RDW Standard Deviation 44.7 fL (35.1-46.3); Red Blood Cell Count 4.25 M/mm3 (3.80-5.20); White Blood Cell Count 6.56 K/mm3 (4.00-11.30)
[2024-06-26 10:02] LABS: Albumin, Blood 3.4 g/dL (3.4-5.0); Albumin/Globulin Ratio 0.9 (0.8-1.8); Bilirubin, Total 0.3 mg/dL (0.1-1.0); Bun/Creatinine Ratio 9.9 (12.0-20.0); Calcium, Blood 9.3 mg/dL (8.5-10.1); Creatinine, Blood 1.21 mg/dL (0.40-1.00); Globulin, Blood 3.8 g/dL (2.2-4.0); Potassium, Blood 3.1 mmol/L (3.5-5.5); Total Protein, Blood 7.2 g/dL (6.4-8.2)
[2024-06-26] MEDS ORDERED: Ondansetron HCl 2 MG / ML 2ML Vial IV ONE (10:15)
[2024-06-26] MEDS ORDERED: Dextrose 50% 50 ML Syringe IV ONE (11:45)
[2024-06-26] MEDS ORDERED: Dextrose 50% 50 ML Vial IV ONE (11:50)
[2024-06-26] MEDS ORDERED: Ondansetron 4 MG TAB PO PRN (12:05)
[2024-06-26] MEDS ORDERED: Magnesium Hydroxide Conc 10 ML UDC PO PRN (12:05)
[2024-06-26] MEDS ORDERED: FLU VACC TS2024-25(6MOS UP)/PF 45 MCG/0.5 ML SYRINGE IM SCH (12:10)
[2024-06-26] MEDS ORDERED: TraZODone HCl 50 MG Tab PO PRN (12:10)
[2024-06-26] MEDS ORDERED: Bisacodyl 10 MG Supp PR PRN (12:10)
[2024-06-26] MEDS ORDERED: CloNIDine 0.3 MG Tab PO SCH (13:00)
[2024-06-26] MEDS ORDERED: Potassium Chloride 20 MEQ TabCR PO ONE ×2 (13:00→15:00)
[2024-06-26] MEDS ORDERED: Dextrose 5% 1,000 ML IV SCH (13:15)
[2024-06-26] MEDS ORDERED: Furosemide 20 MG Tab PO ONE (13:15)
[2024-06-26] MEDS ORDERED: Cyclobenzaprine HCl 10 MG Tab PO PRN (13:20)
[2024-06-26 13:22] LABS: Bun/Creatinine Ratio 10.2 (12.0-20.0); Calcium, Blood 8.9 mg/dL (8.5-10.1); Creatinine, Blood 1.18 mg/dL (0.40-1.00)
[2024-06-26] MEDS ORDERED: Allopurinol 100 MG Tab PO SCH (14:00)
[2024-06-26] MEDS ORDERED: Gabapentin 300 MG Cap PO SCH (14:00)
[2024-06-26 14:06] VITALS: BP 216/145
[2024-06-26] MEDS ORDERED: TREMFYA100 MG/1 M SC (14:39)
[2024-06-26] MEDS ORDERED: OTEZLA30 MG PO (14:40)
[2024-06-26 16:14] VITALS: BP 170/59
[2024-06-26] MEDS ORDERED: HydrALAZINE HCl 20 MG / ML 1ML Vial IV PRN (16:25)
[2024-06-26] MEDS ORDERED: Insulin Human Lispro 100 Units/ML 3ML Syringe SC SCH (16:30)
--- NOTE | 2024-06-26 17:15 | NUR ---
SHIFT SUMMARY PT AOX4, COOPERATIVE, ABLE TO MAKE NEEDS KNOWN, PLEASANT. AMBULATING TO BATHROOM WITH SBA TO ENSURE NO TRIPPING HAZARDS. ON TELE, RUNNING D5 AT 50ML/HR. CBG CHECKS Q2 HOURS FOR THE FIRST 12 HOURS OF ADMISSION PER MD ORDER. BED IN LOWEST POSITION, CALL LIGHT WITHIN REACH.
[2024-06-26] MEDS ORDERED: Clopidogrel Bisulfate 75 MG Tab PO SCH (18:00)
[2024-06-26] MEDS ORDERED: Lisinopril 10 MG Tab PO SCH (18:00)
[2024-06-26] MEDS ORDERED: Aspirin 81 MG Chew PO SCH (18:00)
[2024-06-26] MEDS ORDERED: Prazosin HCl 1 MG Cap PO SCH (18:00)
[2024-06-26 18:03] LABS: Bun/Creatinine Ratio 12.2 (12.0-20.0); Calcium, Blood 9.2 mg/dL (8.5-10.1); Creatinine, Blood 1.15 mg/dL (0.40-1.00); Potassium, Blood 4.4 mmol/L (3.5-5.5)
[2024-06-26 19:45] VITALS: BP 148/69
[2024-06-26] MEDS ORDERED: Metoprolol Tartrate 50 MG Tab PO SCH (21:00)
[2024-06-26] MEDS ORDERED: APREMILAST 30 MG PO SCH (21:00)
[2024-06-27 02:28] VITALS: BP 158/132
--- NOTE | 2024-06-27 02:58 | NUR ---
SHIFT SUMMARY PT ALERT ORIENTED X 4 ABLE TO VERBALIZE NEEDS USES CALL LIGHT. BP WAS HIGH AT 158/132. I GAVE HER HER CLONIDINE A LITTLE EARLY AND AFTER TAKING HER CLONIDINE IT WAS 179/73. HER FS LAST NIGHT WERE 262, 254, 266 AND 262. SHE WAS GETTING A LITER OF D50. I CALLED MD SINCE HER FS WAS MAINTAINING HIGH AND HE ORDERED TO STOP THE D50. FS WERE CHANGED TO AC AND HS. REMAINS ON RA SATTING AT 98%. NO C/O PAIN THIS SHIFT. HAS BEEN GETTING UP AD ANDRESSA IN HER ROOM. SHE HAS A HARD TIME FALLING ASLEEP. TRAZADONE WAS GIVEN BUT SHE STATED THAT SHE ALWAYS STAYS UP LATE AND SLEEPS IN DURING THE DAY. NO C/O NAUSEA. REMAINS ON TELEMETRY AT NSR AT A RATE OF 71. RESTING WELL IN ROOM WATCHING TV WITH CALL LIGHT IN REACH
[2024-06-27 03:10] VITALS: BP 179/73
[2024-06-27] MEDS ORDERED: Omeprazole 20 MG CapCR PO SCH (04:00)
[2024-06-27 06:10] LABS: Hemoglobin 11.1 g/dL (11.5-16.0)
[2024-06-27 06:47] LABS: Bun/Creatinine Ratio 11.1 (12.0-20.0); Calcium, Blood 8.8 mg/dL (8.5-10.1); Creatinine, Blood 1.35 mg/dL (0.40-1.00); Potassium, Blood 4.4 mmol/L (3.5-5.5)
[2024-06-27] MEDS ORDERED: HydrALAZINE HCl 20 MG / ML 1ML Vial IV PRN (08:00)
[2024-06-27 08:05] VITALS: BP 164/90
[2024-06-27] MEDS ORDERED: Insulin Glargine-Yfgn 100 Unit/mL 3 ML SYR SC SCH (09:00)
[2024-06-27] MEDS ORDERED: Enoxaparin 40 MG/0.4 ML SYR SC SCH (09:00)
[2024-06-27] MEDS ORDERED: Rosuvastatin Calcium 10 MG Tab PO SCH (09:00)
[2024-06-27] MEDS ORDERED: Montelukast Sodium 10 MG Tab PO SCH (09:00)
[2024-06-27] MEDS ORDERED: Venlafaxine HCl 75 MG CapCR PO SCH (09:00)
[2024-06-27] MEDS ORDERED: Polyethylene Glycol 3350 119 GM PO SCH (09:00)
[2024-06-27] MEDS ORDERED: PROAIR RESPICL90 MCG INH (11:07)
[2024-06-27] MEDS ORDERED: DESV50 PO (11:13)
--- NOTE | 2024-06-27 11:39 | NUR ---
PT DISCHARGED WITH DC INSTRUCTIONS- WHEELCHAIR OUT TO PRIVATE CAR FOR DC HOME. UNDERSTANDS HER MISTAKE OF INSULIN AND FAMILY REPORTED WORKING ON A SOLUTION TO HELP KEEP INSULIN TO NOT TO MAKE THE SAME MISTAKE
[2024-06-28] MEDS ORDERED: Polyethylene Glycol 3350 17 gm PO SCH (09:00)
== END 2024-06-27 12:00 | disposition home or self-care (01) ==
LOC: ER 09:02 → MEDS 09:13
PROVIDERS: Emergency Medicine; Student in an Organized Health Care Education/Training Program; ADMIT Hospitalist
DX: T38.3X1A Poisoning by insulin and oral hypoglycemic [antidiabetic] drugs, accidental (unintentional), initial encounter (principal); E11.649 Type 2 diabetes mellitus with hypoglycemia without coma; E11.22 Type 2 diabetes mellitus with diabetic chronic kidney disease; I12.9 Hypertensive chronic kidney disease with stage 1 through stage 4 chronic kidney disease, or unspecified chronic kidney disease; E11.51 Type 2 diabetes mellitus with diabetic peripheral angiopathy without gangrene; N18.9 Chronic kidney disease, unspecified; I25.10 Atherosclerotic heart disease of native coronary artery without angina pectoris; I25.2 Old myocardial infarction; E87.6 Hypokalemia; E78.5 Hyperlipidemia, unspecified; Z87.891 Personal history of nicotine dependence; Z88.0 Allergy status to penicillin; Z79.899 Other long term (current) drug therapy
CPT/HCPCS: 36415; 80048; 80053; 82947; 85014; 85018; 85025; 93005; 93010; 96372; 96374; 99285-25; A9270; G0378; J1650; J1815; J2405; J7070; J7799

== ENCOUNTER → 2025-02-15 | Outpatient (CLI) | payer MEDICARE, OTHER ==
[~2025-02-15] MED LIST changes: +PROAIR RESPICL90 MCG INH; +TREMFYA100 MG/1 M SC
== END ==
LOC: LAB 09:30 → LAB SHORT 09:30
DX: N39.0 Urinary tract infection, site not specified (principal)
CPT/HCPCS: 87086

== ENCOUNTER 2025-02-27 13:36 | Emergency (ER) | payer MEDICARE, OTHER ==
[~2025-02-27] VITALS: Ht 154.9 cm; Wt 106.6 kg
[2025-02-27 14:32] LABS: BASOPHILS ABSOLUTE AUTO 0.03 K/mm3 (0.00-0.23); BASOPHILS PERCENT AUTO 0 % (0-2); EOSINOPHILS ABSOLUTE AUTO 0.52 K/mm3 (0.00-0.68); EOSINOPHILS PERCENT AUTO 4 % (0-6); Hematocrit 37.3 % (33.0-51.0); Hemoglobin 12.7 g/dL (11.5-16.0); IMMATURE GRAN ABSOLUTE AUTO 0.12 K/mm3 (0.00-0.10); IMMATURE GRAN PERCENT AUTO 1 % (0-1); LYMPHOCYTES ABSOLUTE AUTO 0.46 K/mm3 (0.84-5.20); LYMPHOCYTES PERCENT AUTO 4 % (21-46); MONOCYTES ABSOLUTE AUTO 0.37 K/mm3 (0.16-1.47); MONOCYTES PERCENT AUTO 3 % (4-13); Mean Corpuscular HGB Conc 34.0 g/dL (31.5-36.5); Mean Corpuscular Volume 88 fL (80-100); NEUTROPHILS ABSOLUTE AUTO 11.66 K/mm3 (1.96-9.15); NEUTROPHILS PERCENT AUTO 89 % (41-73); NRBC ABSOLUTE 0.00 K/mm3 (0.00-0.02); NRBC Auto 0.0 /100 WBC (0.0-0.2); Platelet Count 201 K/mm3 (150-400); RDW Coefficient Variation 15.1 % (11.7-14.2); RDW Standard Deviation 48.3 fL (35.1-46.3)
[2025-02-27 14:59] LABS: Alanine Aminotransfer (ALT/SGP 31.0 U/L (12-78); Albumin, Blood 2.9 g/dL (3.4-5.0); Albumin/Globulin Ratio 0.8 (0.8-1.8); Anion Gap 12.0 mmol/L (3-11); Aspartate Aminotrans (AST/SGOT 17.0 U/L (12-37); Bilirubin, Total 0.4 mg/dL (0.1-1.0); Blood Urea Nitrogen 38.0 mg/dL (8-24); CO2, Blood 22.0 mmol/L (21-32); Calcium, Blood 8.1 mg/dL (8.5-10.1); Chloride, Blood 100.0 mmol/L (98-108); Creatinine, Blood 1.91 mg/dL (0.40-1.00); Globulin, Blood 3.6 g/dL (2.2-4.0); Glucose, Blood 265.0 mg/dL (70-99); Potassium, Blood 3.9 mmol/L (3.5-5.5); Sodium, Blood 130.0 mmol/L (136-145); Total Protein, Blood 6.5 g/dL (6.4-8.2)
[2025-02-27] MEDS ORDERED: TREMFYA100 MG/11 SQ (16:00)
[2025-02-27] MEDS ORDERED: Nexium40 MG PO (16:00)
[2025-02-27] MEDS ORDERED: OLME20 PO (16:01)
[2025-02-27 17:24] LABS: Bilirubin, Urine Neg (Neg); Color, Urine Yellow (P-Yellow); Glucose Qualitative, Urine 1+ (Neg); Ketones, Urine Neg (Neg); Leukocyte Esterase, Urine 2+ (Neg); Protein, Urine 2+ (Neg); Specific Gravity, Urine 1.020 (1.003-1.022); Urobilinogen, Urine NORM (Normal)
[2025-02-27 17:26] LABS: Source, Urine Clean Catch
[2025-02-27 17:35] LABS: White Blood Cells, Urine 50-100 /hpf (0-5)
[2025-02-27] MEDS ORDERED: CefTRIAXone Sodium 2,000 MG in NS 100 ML IV ONE (18:10)
[2025-02-27 18:12] LABS: Influenza A, PCR NEGATIVE (NEGATIVE); Influenza B, PCR NEGATIVE (NEGATIVE); Resp Syncytial Virus, PCR NEGATIVE (NEGATIVE); SARS-Cov-2 (COVID-19) PCR, MMC NEGATIVE (NEGATIVE)
[2025-02-27 19:39] LABS: pH Blood Venous 7.34 (7.34-7.37)
[2025-02-27] MEDS ORDERED: CEFP200 PO (20:32)
[2025-02-27 20:45] VITALS: BP 115/75
== END 2025-02-27 20:46 | disposition home or self-care (01) ==
LOC: ER 13:36
PROVIDERS: Emergency Medicine
DX: G93.40 Encephalopathy, unspecified (principal); N39.0 Urinary tract infection, site not specified; E87.20 Acidosis, unspecified; E87.1 Hypo-osmolality and hyponatremia; I12.9 Hypertensive chronic kidney disease with stage 1 through stage 4 chronic kidney disease, or unspecified chronic kidney disease; E11.22 Type 2 diabetes mellitus with diabetic chronic kidney disease; N18.9 Chronic kidney disease, unspecified; I25.10 Atherosclerotic heart disease of native coronary artery without angina pectoris; M19.90 Unspecified osteoarthritis, unspecified site; Z95.820 Peripheral vascular angioplasty status with implants and grafts; Z95.5 Presence of coronary angioplasty implant and graft; Z87.891 Personal history of nicotine dependence; Z90.710 Acquired absence of both cervix and uterus; Z88.0 Allergy status to penicillin; Z79.4 Long term (current) use of insulin; Z79.02 Long term (current) use of antithrombotics/antiplatelets; Z79.899 Other long term (current) drug therapy
CPT/HCPCS: 71046; 80053; 80320; 81001; 82803; 83605; 83880; 84484; 85025; 87086; 87637; 93005; 93010; 96361; 96365; 99285-25; J0696; J7120; P9612

== ENCOUNTER 2025-03-03 08:44 | Emergency (ER) | payer MEDICARE, OTHER ==
[~2025-03-03] VITALS: Ht 154.9 cm; Wt 106.6 kg
[~2025-03-03 08:44] MED LIST changes: +CEFP200 PO; +OLME20 PO; +TREMFYA100 MG/11 SQ
[2025-03-03] MEDS ORDERED: NS 1,000 ML IV SCH (09:40)
[2025-03-03 09:49] LABS: BASOPHILS ABSOLUTE AUTO 0.04 K/mm3 (0.00-0.23); BASOPHILS PERCENT AUTO 0 % (0-2); EOSINOPHILS ABSOLUTE AUTO 0.45 K/mm3 (0.00-0.68); EOSINOPHILS PERCENT AUTO 4 % (0-6); Hematocrit 34.1 % (33.0-51.0); Hemoglobin 11.4 g/dL (11.5-16.0); IMMATURE GRAN ABSOLUTE AUTO 0.37 K/mm3 (0.00-0.10); IMMATURE GRAN PERCENT AUTO 4 % (0-1); LYMPHOCYTES ABSOLUTE AUTO 1.93 K/mm3 (0.84-5.20); LYMPHOCYTES PERCENT AUTO 19 % (21-46); MONOCYTES ABSOLUTE AUTO 0.52 K/mm3 (0.16-1.47); MONOCYTES PERCENT AUTO 5 % (4-13); Mean Corpuscular HGB Conc 33.4 g/dL (31.5-36.5); Mean Corpuscular Volume 90 fL (80-100); NEUTROPHILS ABSOLUTE AUTO 7.00 K/mm3 (1.96-9.15); NEUTROPHILS PERCENT AUTO 68 % (41-73); NRBC ABSOLUTE 0.02 K/mm3 (0.00-0.02); NRBC Auto 0.2 /100 WBC (0.0-0.2); Platelet Count 208 K/mm3 (150-400); RDW Coefficient Variation 14.9 % (11.7-14.2); RDW Standard Deviation 48.7 fL (35.1-46.3)
[2025-03-03 10:10] LABS: Alanine Aminotransfer (ALT/SGP 30.0 U/L (12-78); Albumin, Blood 3.1 g/dL (3.4-5.0); Albumin/Globulin Ratio 0.8 (0.8-1.8); Anion Gap 11.0 mmol/L (3-11); Aspartate Aminotrans (AST/SGOT 19.0 U/L (12-37); Bilirubin, Total 0.3 mg/dL (0.1-1.0); Blood Urea Nitrogen 23.0 mg/dL (8-24); CO2, Blood 28.0 mmol/L (21-32); Calcium, Blood 9.0 mg/dL (8.5-10.1); Chloride, Blood 99.0 mmol/L (98-108); Creatinine, Blood 1.41 mg/dL (0.40-1.00); Globulin, Blood 3.7 g/dL (2.2-4.0); Glucose, Blood 223.0 mg/dL (70-99); Potassium, Blood 4.1 mmol/L (3.5-5.5); Sodium, Blood 134.0 mmol/L (136-145); Total Protein, Blood 6.8 g/dL (6.4-8.2)
[2025-03-03 12:05] LABS: Source, Urine Clean Catch
[2025-03-03 12:16] LABS: Bilirubin, Urine Neg (Neg); Color, Urine Yellow (P-Yellow); Glucose Qualitative, Urine Neg (Neg); Ketones, Urine Neg (Neg); Leukocyte Esterase, Urine Neg (Neg); Protein, Urine 2+ (Neg); Specific Gravity, Urine 1.010 (1.003-1.022); Urobilinogen, Urine NORM (Normal)
[2025-03-03 12:26] LABS: White Blood Cells, Urine 0-2 /hpf (0-5)
[2025-03-03 12:27] LABS: Red Blood Cells, Urine 0-2 /hpf (0-2)
[2025-03-03 13:10] VITALS: BP 181/102
== END 2025-03-03 13:13 | disposition home or self-care (01) ==
LOC: ER 08:44
PROVIDERS: Emergency Medicine
DX: R53.1 Weakness (principal); R50.9 Fever, unspecified; Z88.0 Allergy status to penicillin; Z79.2 Long term (current) use of antibiotics; Z79.4 Long term (current) use of insulin; Z79.899 Other long term (current) drug therapy; E11.22 Type 2 diabetes mellitus with diabetic chronic kidney disease; I12.9 Hypertensive chronic kidney disease with stage 1 through stage 4 chronic kidney disease, or unspecified chronic kidney disease; N18.9 Chronic kidney disease, unspecified; E78.5 Hyperlipidemia, unspecified
CPT/HCPCS: 80053; 81001; 85025; 93005; 93010; 96360; 99283-25; J7030